=== PATIENT | male | born 1950 | race African-American/Black ===

== ENCOUNTER 2021-10-31 09:05 | Outpatient (REF) | payer MEDICARE, SELFPAY ==
[2021-10-31 10:16] LABS: Hematocrit 33.5 % (42.0-52.0); Mean Corpuscular HGB Conc 32.8 g/dl (31.0-36.0); Mean Corpuscular Hemoglobin 28.3 pg (27.0-33.0); Mean Corpuscular Volume 86.1 fL (80.0-98.0); Platelet Count 267 X10*3/uL (160-400); Red Blood Count 3.89 X10*6/uL (4.60-5.80); Red Cell Distribution Width 14.9 % (11.0-16.0); White Blood Count 2.6 X10*3/uL (4.8-10.8)
[2021-10-31 10:52] LABS: Appearance Urine HAZY; Color Urine YELLOW; Glucose Urine UA NEG (NEG); Leukocyte Esterase Urine 2+ (NEG); Nitrite Urine POS (NEG); Specific Gravity - Urine 1.025 (1.005-1.025); Urine Blood NEG (NEG); Urine Ketones NEG (NEG); Urine Protein NEG (NEG-TRACE)
[2021-10-31 12:05] LABS: Bacteria Urine 2+ /LPF; RBC Urine 0-2 /HPF (0); Renal Epithelial Cells Urine 1+ /LPF; Squamous Epithelial Cell Urine 1+ /LPF
[2021-10-31 12:24] LABS: Creatinine Urine 108.14 mg/dL; Microalbum/Creatinine Ratio Ur 13.8 ug/mg cr
[2021-10-31 12:36] LABS: Alanine Aminotransferase 26 U/L (0-40); Alkaline Phosphatase 66 U/L (39-117); Aspartate Amino Transferase 24 U/L (5-37); Bilirubin Direct < 0.2 mg/dL (0.0-0.5); Bilirubin Total 0.4 mg/dL (0.0-1.0); Cholesterol 182 mg/dL; HDL Cholesterol 51 mg/dL; LDL Cholesterol Calculated 121 mg/dl; Total Protein 6.8 g/dL (6.5-8.0); Triglycerides 52 mg/dL
[2021-10-31 13:18] LABS: Thyroid Stimulating Hormone 0.67 uIU/mL (0.32-4.0)
[2021-10-31 15:26] LABS: Estimated Average Glucose 140 mg/dL; Hemoglobin A1c % 6.5 %
[2021-11-05 12:57] LABS: Vitamin D 25-OH, D2 <4 ng/mL; Vitamin D 25-OH, D3 68 ng/mL; Vitamin D 25-OH, Total 68 ng/mL (30-100)
== END 2021-10-31 09:06 | disposition home or self-care (01) ==
LOC: HO.LAB 09:05
PROVIDERS: PCP Internal Medicine; Visit Provider Internal Medicine
DX: Z00.00 Encounter for general adult medical examination without abnormal findings (principal); E11.9 Type 2 diabetes mellitus without complications; E78.00 Pure hypercholesterolemia, unspecified; I10 Essential (primary) hypertension
CPT/HCPCS: 36415; 80061; 80076; 81001; 82043; 82306; 83036; 84443; 85027

== ENCOUNTER 2022-10-20 18:46 | Emergency (ER) | payer OTHER, MEDICARE, SELFPAY ==
[2022-10-20 19:15] VITALS: BP 114/54; PULSE 111; RESP 20; TEMP 37.7; O2SAT 95; BMI 29.1
[2022-10-20] MEDS: Acetaminophen 325 MG TABLET 650 MG PO (19:23)
[2022-10-20 19:41] LABS: Basophils Percent Auto 0.2 % (0-2); Eosinophils Percent Auto 0.3 % (0-4); Hemoglobin 10.4 g/dl (14.0-18.0); Imm Gran Abs Auto 0.01 X10*3/uL (0.00-0.03); Imm Gran Pct Auto 0.2 % (0.0-0.4); Lymphocytes Absolute Auto 0.6 X10*3/uL (1.2-4.9); Lymphocytes Percent Auto 8.9 % (20-40); MANUAL DIFF FLAG NO; Mean Corpuscular HGB Conc 33.5 g/dl (31.0-36.0); Mean Corpuscular Volume 86.4 fL (80.0-98.0); Mean Platelet Volume 9.6 fL (9.4-12.4); Monocytes Absolute Auto 0.4 X10*3/uL (0.1-1.2); Monocytes Percent Auto 5.8 % (2-11); Neutrophils Absolute Auto 5.4 x10*3/uL (2.0-8.3); Neutrophils Percent Auto 84.6 % (45-73); Platelet Count 192 X10*3/uL (160-400); Red Blood Count 3.59 X10*6/uL (4.60-5.80); Red Cell Distribution Width 14.5 % (11.0-16.0); White Blood Count 6.4 X10*3/uL (4.8-10.8)
[2022-10-20 19:42] LABS: Appearance Urine Clear; Color Urine Yellow; Glucose Urine UA >=1000 mg/dL (Negative); Leukocyte Esterase Urine Small (1+) (Negative); Nitrite Urine Positive (Negative); PH 5.5 (5.0-9.0); UMIC TRIGGER UACC YES; Urine Blood Negative (Negative); Urine Ketones Negative (Negative); Urine Protein Trace mg/dL (Neg-Trace)
[2022-10-20 19:46] LABS: Bacteria Urine 1+ (None Seen); Hyaline Casts Urine 0-2 /LPF (0-2); RBC Urine 0-2 /HPF (0-2); UACC Culture Trigger YES; WBC Urine 21-50 /HPF (0-5)
[2022-10-20 19:55] LABS: Anion Gap 12 (12-20); Blood Urea Nitrogen 28 mg/dL (9-16); Calcium 8.7 mg/dL (8.4-10.2); Carbon Dioxide 22 mmol/L (22-29); Chloride 110 mmol/L (96-108); Creatinine Clr Calc Pharmacy 58.9; Estimated Glomerular Filt Rate 50; Glucose Random 131 mg/dL (60-115); Potassium 4.5 mmol/L (3.3-5.1); Sodium 139 mmol/L (135-145)
[2022-10-20 20:00] VITALS: BP 126/67; PULSE 97; RESP 16; TEMP 37.3; O2SAT 98
--- NOTE | 2022-10-20 20:16 | ED_ITS ---
HPI - Male Genitourinary General Chief complaint: Urogenital-Male Stated complaint: UTI? Time Seen by Provider: 10/20/22 20:09 Source: patient Mode of arrival: ambulatory Limitations: no limitations History of Present Illness HPI Narrative: Patient with history of diabetes, hypertension comes here as since the last night having incontinence and frequency feels weak had subjective low-grade fever with chills last night. Patient had bacteremia about 10 years ago Related Data Home Medications Medication Instructions Recorded Confirmed amlodipine 2.5 mg tablet 2.5 mg PO DAILY 10/12/20 10/31/21 lisinopril 40 mg tablet 40 mg PO DAILY 10/12/20 10/31/21 metformin 500 mg tablet 1,000 mg PO BID 10/12/20 10/31/21 [id number] 200 mcg-lycop 50 tab PO DAILY 10/12/20 10/31/21 175 mcg-lutei 250 mcg-herb 178 tablet ([facility] Multivitamin For Men) latanoprost 0.005 % eye drops 1 drp ophthalmic (eye) QPM 10/31/21 10/31/21 pravastatin 80 mg tablet 80 mg PO DAILY 10/31/21 10/31/21 Previous Rx's Medication Instructions Recorded alogliptin 12.5 mg tablet 12.5 mg PO DAILY 3 months #90 tabs 10/12/20 cefuroxime axetil 250 mg tablet 250 mg PO BID 10 days #20 tabs 10/21/22 Allergies Allergy/AdvReac Type Severity Reaction Status Date / Time atorvastatin Allergy Unknown unknown Verified 10/31/21 08:33 rosuvastatin [Crestor] Allergy Unknown Unknown Verified 10/31/21 08:33 simvastatin Allergy Unknown Unknown Verified 10/31/21 08:33 Sulfa (Sulfonamide Allergy Unknown Unknown Verified 10/31/21 08:33 Antibiotics) Influenza Virus Vaccines Allergy Unknown Verified 10/20/22 19:20 Review of Systems Review of Systems: Yes all other systems are reviewed and are negative PMFSH Past Medical History Medical History Annual physical exam Borderline hypercholesterolemia Diabetes mellitus Essential hypertension Surgical History History of carpal tunnel surgery Family History Family History Mother Diabetes High blood pressure Father No problems noted. Father Cancer Social History Social History Housing: House Alcohol intake: never Patient Tobacco Use Status: Never used Tobacco Smoked in Last 30 Days: No e-Cigarette/Vaping Use: Never Used Second Hand Smoke Exposure: No Use of substances other than those prescribed or required for medical reasons: No Advance Directives: No Advance Directives Information Provided: Yes Current occupational status: employed and retired Cognitive needs: No Hearing needs: No Vision needs: No Physical Exam Vital Signs: Vital Signs: Last Vital Signs Temp 99.1 F 10/20/22 20:33 Pulse 91 10/20/22 20:33 Resp 20 10/20/22 19:15 BP 115/55 L 10/20/22 20:33 Pulse Ox 95 10/20/22 19:15 O2 Del Method 10/20/22 19:15 BMI result Body Mass Index 29.1 Appearance: Alert. Oriented X3. No acute distress. Eyes: PERRLA, No Nystagmus ENT: Pharynx normal. Oral Mucosa moist Neck: Normal inspection. Neck supple. CVS: Normal heart rate and rhythm. Pulses normal. Respiratory: No respiratory distress. Equal air entry bilateral, no wheezing/rales/rhonchi Abdomen: Soft and nontender. Bowel sounds are present, no mass palpable, no CVA tenderness rectal: Slightly enlarged prostate nontender Skin: Skin warm and dry. Normal skin color. Normal skin turgor. Extremities: No lower extremity edema. No calf tenderness Neuro: Oriented X 3. No motor deficit. No sensory deficit.No cerebellar signs , cranial nerves II-XII intact Medications Administered Discontinued Medications Generic Name Dose Route Start Last Admin Trade Name Freq PRN Reason Stop Dose Admin Acetaminophen 650 mg 10/20/22 19:20 10/20/22 19:23 Acetaminophen 325 Mg Tablet PO 10/20/22 19:21 650 mg ONCE ONE Administration Sodium Chloride 1,000 mls @ 999 mls/hr 10/20/22 20:17 10/20/22 21:56 Ns IV 10/20/22 21:17 Infused .Q1H1M ONE Infusion Ceftriaxone Sodium 1 gm/ 50 mls @ 100 mls/hr 10/20/22 20:17 10/20/22 21:56 Sodium Chloride IV 10/20/22 20:46 Infused ONCE ONE Infusion Medical Decision Making Differential Diagnosis Patient with uncomplicated UTI received IV Rocephin lactic acid normal discharge patient home on Ceftin for 10 days advised to follow with PCP Lab Data [facility] Lab Attestation statement: I reviewed the patient's lab results. 10/20/22 19:32 10/20/22 19:32 Labs: Lab Results 10/20/22 10/20/22 10/20/22 Range/Units 19:32 19:32 19:32 WBC 6.4 (4.8-10.8) X10*3/uL RBC 3.59 L (4.60-5.80) X10*6/uL Hgb 10.4 L (14.0-18.0) g/dl Hct 31.0 L (42.0-52.0) % MCV 86.4 (80.0-98.0) fL MCH 29.0 (27.0-33.0) pg MCHC 33.5 (31.0-36.0) g/dl RDW 14.5 (11.0-16.0) % Plt Count 192 D (160-400) X10*3/uL MPV 9.6 (9.4-12.4) fL Immature Gran % (Auto) 0.2 (0.0-0.4) % Neut % (Auto) 84.6 H (45-73) % Lymph % (Auto) 8.9 L (20-40) % [place] % (Auto) 5.8 (2-11) % Eos % (Auto) 0.3 (0-4) % Baso % (Auto) 0.2 (0-2) % Lymph # (Auto) 0.6 L (1.2-4.9) X10*3/uL [place] # (Auto) 0.4 (0.1-1.2) X10*3/uL Eos # (Auto) 0.0 (0.0-0.4) X10*3/uL Baso # (Auto) 0.0 (0.0-0.2) X10*3/uL Abs Immat Gran (auto) 0.01 (0.00-0.03) X10*3/uL Absolute Neuts (auto) 5.4 (2.0-8.3) x10*3/uL Absolute Nucleated RBC 0.000 (0.0-0.012) X10*3/uL Nucleated RBC % (auto) 0.0 (0.0-0.2) /100WBC Sodium 139 (135-145) mmol/L Potassium 4.5 (3.3-5.1) mmol/L Chloride 110 H (96-108) mmol/L Carbon Dioxide 22 (22-29) mmol/L Anion Gap 12 (12-20) BUN 28 H (9-16) mg/dL Creatinine 1.39 (0.5-1.4) mg/dL Estim Creat Clear Calc 58.9 Estimated GFR 50 Random Glucose 131 H (60-115) mg/dL Lactic Acid (0.5-2.0) mmol/L Calcium 8.7 (8.4-10.2) mg/dL Urine Color Yellow Urine Appearance Clear Urine pH 5.5 (5.0-9.0) Ur Specific [place] 1.020 (1.005-1.025) Urine Protein Trace (Neg-Trace) mg/dL Urine Glucose (UA) >=1000 H (Negative) mg/dL Urine Ketones Negative (Negative) mg/dL Urine Blood Negative (Negative) Urine Nitrite Positive H (Negative) Ur Leukocyte Esterase Small (1+) H (Negative) Urine RBC 0-2 (0-2) /HPF Urine WBC 21-50 H (0-5) /HPF Ur Squamous Epith Cells 3-5 (0-2) /HPF Urine Bacteria 1+ (None Seen) Hyaline Casts 0-2 (0-2) /LPF 10/20/22 Range/Units 21:14 WBC (4.8-10.8) X10*3/uL RBC (4.60-5.80) X10*6/uL Hgb (14.0-18.0) g/dl Hct (42.0-52.0) % MCV (80.0-98.0) fL MCH (27.0-33.0) pg MCHC (31.0-36.0) g/dl RDW (11.0-16.0) % Plt Count (160-400) X10*3/uL MPV (9.4-12.4) fL Immature Gran % (Auto) (0.0-0.4) % Neut % (Auto) (45-73) % Lymph % (Auto) (20-40) % [place] % (Auto) (2-11) % Eos % (Auto) (0-4) % Baso % (Auto) (0-2) % Lymph # (Auto) (1.2-4.9) X10*3/uL [place] # (Auto) (0.1-1.2) X10*3/uL Eos # (Auto) (0.0-0.4) X10*3/uL Baso # (Auto) (0.0-0.2) X10*3/uL Abs Immat Gran (auto) (0.00-0.03) X10*3/uL Absolute Neuts (auto) (2.0-8.3) x10*3/uL Absolute Nucleated RBC (0.0-0.012) X10*3/uL Nucleated RBC % (auto) (0.0-0.2) /100WBC Sodium (135-145) mmol/L Potassium (3.3-5.1) mmol/L Chloride (96-108) mmol/L Carbon Dioxide (22-29) mmol/L Anion Gap (12-20) BUN (9-16) mg/dL Creatinine (0.5-1.4) mg/dL Estim Creat Clear Calc Estimated GFR Random Glucose (60-115) mg/dL Lactic Acid 0.5 (0.5-2.0) mmol/L Calcium (8.4-10.2) mg/dL Urine Color Urine Appearance Urine pH (5.0-9.0) Ur Specific [place] (1.005-1.025) Urine Protein (Neg-Trace) mg/dL Urine Glucose (UA) (Negative) mg/dL Urine Ketones (Negative) mg/dL Urine Blood (Negative) Urine Nitrite (Negative) Ur Leukocyte Esterase (Negative) Urine RBC (0-2) /HPF Urine WBC (0-5) /HPF Ur Squamous Epith Cells (0-2) /HPF Urine Bacteria (None Seen) Hyaline Casts (0-2) /LPF Discharge Plan Discharge Clinical Impression: Urinary tract infection Patient Disposition: Home, Self-Care Instructions: Urinary Tract Infection in Men (ED) Additional Instructions: Drink plenty of fluids Take antibiotics as prescribed for 10 days Report to the ER if not better Prescriptions: New cefuroxime axetil 250 mg tablet 250 mg PO BID 10 Days Qty: 20 0RF No Action metformin 500 mg tablet 1,000 mg PO BID lisinopril 40 mg tablet 40 mg PO DAILY amlodipine 2.5 mg tablet 2.5 mg PO DAILY [facility] Multivitamin For Men 200-175-250 mcg tablet 50 tab PO DAILY alogliptin 12.5 mg tablet 12.5 mg PO DAILY 90 Days Qty: 90 0RF pravastatin 80 mg tablet 80 mg PO DAILY latanoprost 0.005 % drops 1 drp ophthalmic (eye) QPM
[2022-10-20 20:33] VITALS: BP 115/55; PULSE 91; TEMP 37.3
[2022-10-20] MEDS: 0.9 % Sodium Chloride 1,000 ML 999 ML IV (20:36)
[2022-10-20] MEDS: cefTRIAXone sodium 1 GM in 0.9 % Sodium Chloride 50 ML IV (20:36)
[2022-10-20 21:32] LABS: Lactic Acid 0.5 mmol/L (0.5-2.0)
--- NOTE | 2022-10-20 22:43 | PC.NURSE ---
pt resting quietly while watching tv, at bedside; no apparent distress
--- NOTE | 2022-10-21 00:15 | PC.NURSE ---
discharge instructions given and explained, ambulates safely/independently, no apparent distress, no post ictal sxs, all of patient's questions answered
== END 2022-10-21 00:24 | disposition home or self-care (01) ==
PROVIDERS: Nurse Practitioner Family; Emergency Provider Internal Medicine; PCP Internal Medicine
DX: N39.0 Urinary tract infection, site not specified (principal); I10 Essential (primary) hypertension; Z79.899 Other long term (current) drug therapy
CPT/HCPCS: 36415; 80048; 81001; 83605; 85025; 87040; 87086; 87088; 87186; 96360; 99284; 99285; J0696

== ENCOUNTER 2022-12-30 14:16 | Emergency (ER) | payer OTHER, MEDICARE, SELFPAY ==
[2022-12-30 14:57] VITALS: BP 143/67; PULSE 85; RESP 16; TEMP 36.7; O2SAT 98; BMI 28.2
--- NOTE | 2022-12-30 15:01 | ED.MALEGU ---
HPI - Male Genitourinary General Chief complaint: Urogenital-Male <ESE Farfan - Last Filed: 12/30/22 20:43> Stated complaint: UTI <ESE Farfan - Last Filed: 12/30/22 20:43> Time Seen by Provider: 12/30/22 17:30 <ESE Farfan - Last Filed: 12/30/22 20:43> Source: patient, RN notes reviewed and old records reviewed <Jas Mitchell - Last Filed: 12/30/22 17:44> Mode of arrival: ambulatory <Jas Mitchell - Last Filed: 12/30/22 17:44> Limitations: no limitations <Jas Mitchell - Last Filed: 12/30/22 17:44> History of Present Illness HPI Narrative: 72-year-old male presents for evaluation aeration and urinary urgency. Patient reports that his symptoms started 3 days ago and he also has associated generalized weakness He reports his symptoms feel similar to when he had a UTI about 2 months ago Of note, the patient did have a prostate biopsy 2 weeks ago and he is currently being worked up for prostate cancer Denies any testicular pain or swelling, or abdominal pain. No fevers or chills <Jas Mitchell - Last Filed: 12/30/22 17:44> Related Data Home medications: Home Medications Medication Instructions Recorded Confirmed amlodipine 2.5 mg tablet 2.5 mg PO DAILY 10/12/20 10/31/21 lisinopril 40 mg tablet 40 mg PO DAILY 10/12/20 10/31/21 metformin 500 mg tablet 1,000 mg PO BID 10/12/20 10/31/21 [id number] 200 mcg-lycop 50 tab PO DAILY 10/12/20 10/31/21 175 mcg-lutei 250 mcg-herb 178 tablet ([facility] Mult[facility]itamin For Men) latanoprost 0.005 % eye drops 1 drp ophthalmic (eye) QPM 10/31/21 10/31/21 pravastatin 80 mg tablet 80 mg PO DAILY 10/31/21 10/31/21 Previous Rx's Medication Instructions Recorded alogliptin 12.5 mg tablet 12.5 mg PO DAILY 3 months #90 tabs 10/12/20 cefuroxime axetil 250 mg tablet 250 mg PO BID 10 days #20 tabs 10/21/22 nitrofurantoin 100 mg PO Q12H 7 days #14 caps 12/30/22 monohydrate/macrocrystals 100 mg capsule (Macrobid) <ESE Farfan - Last Filed: 12/30/22 20:43> Allergies/Adverse reactions: Allergies Allergy/AdvReac Type Severity Reaction Status Date / Time atorvastatin Allergy Unknown unknown Verified 10/31/21 08:33 rosuvastatin [Crestor] Allergy Unknown Unknown Verified 10/31/21 08:33 simvastatin Allergy Unknown Unknown Verified 10/31/21 08:33 Sulfa (Sulfonamide Allergy Unknown Unknown Verified 10/31/21 08:33 Antibiotics) Influenza Virus Vaccines Allergy Unknown Verified 10/20/22 19:20 <ESE Farfan - Last Filed: 12/30/22 20:43> Review of Systems Constitutional: Constitutional: Reports as per HPI, Denies chills, Denies fatigue, Denies fever(s) and Denies headache(s) <Jas Mitchell - Last Filed: 12/30/22 17:44> ENT: Denies headache(s) <Jas Mitchell - Last Filed: 12/30/22 17:44> Cardiovascular: Cardiovascular: Denies chest pain and Denies dyspnea <Jas Mitchell - Last Filed: 12/30/22 17:44> Respiratory: Respiratory: Denies cough and Denies dyspnea <Jas Mitchell - Last Filed: 12/30/22 17:44> Gastrointestinal: Gastrointestinal: Denies abdominal pain, Denies constipation and Denies vomiting <Jas Mitchell - Last Filed: 12/30/22 17:44> Genitourinary: Genitourinary: Reports urinary frequency and Reports urinary urgency <Jas Mitchell - Last Filed: 12/30/22 17:44> Neurologic: Denies headache(s) and Denies focal weakness <Jas Mitchell - Last Filed: 12/30/22 17:44> Endocrine: Endocrine: Denies fatigue <Jas Mitchell - Last Filed: 12/30/22 17:44> PMFSH Past Medical History Medical History: Medical History Annual physical exam Borderline hypercholesterolemia Diabetes mellitus Essential hypertension <ESE Farfan - Last Filed: 12/30/22 20:43> Surgical History: Surgical History History of carpal tunnel surgery <ESE Farfan - Last Filed: 12/30/22 20:43> Family History Family History: Family History Mother Diabetes High blood pressure Father No problems noted. Father Cancer <ESE Farfan - Last Filed: 12/30/22 20:43> Social History Social History: Social History Housing: House Alcohol intake: never Patient Tobacco Use Status: Never used Tobacco e-Cigarette/Vaping Use: Never Used Second Hand Smoke Exposure: No Advance Directives: No Advance Directives Information Provided: No Current occupational status: employed and retired Cognitive needs: No Hearing needs: No Vision needs: No <ESE Farfan - Last Filed: 12/30/22 20:43> Physical Exam Vital Signs: Vital Signs: Last Vital Signs Temp 98.0 F 12/30/22 14:57 Pulse 85 12/30/22 14:57 Resp 16 12/30/22 14:57 BP 143/67 H 12/30/22 14:57 Pulse Ox 98 12/30/22 14:57 O2 Del Method Room Air 12/30/22 14:57 BMI result Body Mass Index 28.2 <ESE Farfan - Last Filed: 12/30/22 20:43> Vital Signs: Last Vital Signs Temp 98.0 F 12/30/22 14:57 Pulse 85 12/30/22 14:57 Resp 16 12/30/22 14:57 BP 143/67 H 12/30/22 14:57 Pulse Ox 98 12/30/22 14:57 O2 Del Method Room Air 12/30/22 14:57 BMI result Body Mass Index 28.2 <Jas Mitchell - Last Filed: 12/30/22 17:44> Const: General: healthy appearing, comfortable, no acute distress, alert and awake <Jas Mitchell - Last Filed: 12/30/22 17:44> Nutritional Appearance: well nourished < Last Filed: 12/30/22 17:44> Orientation/consciousness: patient oriented x3 < Last Filed: 12/30/22 17:44> HEENT: Head: Yes normocephalic and Yes atraumatic < Last Filed: 12/30/22 17:44> Throat: Yes posterior oropharynx normal < Last Filed: 12/30/22 17:44> Eyes: Eyelids: Yes eyelids normal < Last Filed: 12/30/22 17:44> Conjunctivae: conjunctivae normal < Last Filed: 12/30/22 17:44> Sclerae: sclerae normal < Last Filed: 12/30/22 17:44> Corneas: corneas normal < Last Filed: 12/30/22 17:44> Pupils: Equal, round and reactive pupils present < Last Filed: 12/30/22 17:44> EOM: EOMs intact bilaterally < Last Filed: 12/30/22 17:44> Neck: Neck: Yes full ROM < Last Filed: 12/30/22 17:44> Cardio: Rate: regular rate < Last Filed: 12/30/22 17:44> Rhythm: regular rhythm < Last Filed: 12/30/22 17:44> GI: Inspection: No distended < Last Filed: 12/30/22 17:44> Palpation (GI): Soft to palpation, not firm, nontender, no guarding and not rigid < Last Filed: 12/30/22 17:44> Auscultation: normoactive bowel sounds < Last Filed: 12/30/22 17:44> Skin: General skin exam: no rashes or lesions noted and elasticity normal <Jas Mitchell - Last Filed: 12/30/22 17:44> Neuro: General: patient oriented x3 <Jas Mitchell - Last Filed: 12/30/22 17:44> Cranial nerves: Yes Equal, round and reactive pupils present and Yes Bilaterally intact EOM present <Jas Mitchell - Last Filed: 12/30/22 17:44> Cognition (Neuro): normal cognition <Jas Mitchell - Last Filed: 12/30/22 17:44> Course Course Course Narrative: RME: 72 yold female presents to the ED for increase urinary frequency. patient denies any abdominal pain, nuasea, vomitting, hematuria, flank pain <ESE Farfan - Last Filed: 12/30/22 20:43> Medical Decision Making Medical Decision Making [facility] Narrative: Clinically the patient has a UTI with white cells and leukocyte esterase in the urine. Labs are without significant findings. We will treat with Macrobid BID x 7 days <Jas Mitchell - Last Filed: 12/30/22 17:44> Differential Diagnosis UTI Cystitis Hyperglycemia Prostate cancer <Jas Mitchell - Last Filed: 12/30/22 17:44> Lab Data Result Diagrams: 12/30/22 15:21 12/30/22 15:21 <ESE Farfan - Last Filed: 12/30/22 20:43> Labs: Lab Results 12/30/22 12/30/22 12/30/22 Range/Units 15:21 15:21 15:25 WBC 7.8 (4.8-10.8) X10*3/uL RBC 3.51 L (4.60-5.80) X10*6/uL Hgb 10.3 L (14.0-18.0) g/dl Hct 30.5 L (42.0-52.0) % MCV 86.9 (80.0-98.0) fL MCH 29.3 (27.0-33.0) pg MCHC 33.8 (31.0-36.0) g/dl RDW 14.6 (11.0-16.0) % Plt Count 174 (160-400) X10*3/uL MPV 10.4 (9.4-12.4) fL Immature Gran % (Auto) 0.3 (0.0-0.4) % Neut % (Auto) 74.8 H (45-73) % Lymph % (Auto) 11.4 L (20-40) % [place] % (Auto) 7.7 (2-11) % Eos % (Auto) 5.5 H (0-4) % Baso % (Auto) 0.3 (0-2) % Lymph # (Auto) 0.9 L (1.2-4.9) X10*3/uL [place] # (Auto) 0.6 (0.1-1.2) X10*3/uL Eos # (Auto) 0.4 (0.0-0.4) X10*3/uL Baso # (Auto) 0.0 (0.0-0.2) X10*3/uL Abs Immat Gran (auto) 0.02 (0.00-0.03) X10*3/uL Absolute Neuts (auto) 5.9 (2.0-8.3) x10*3/uL Absolute Nucleated RBC 0.000 (0.0-0.012) X10*3/uL Nucleated RBC % (auto) 0.0 (0.0-0.2) /100WBC Sodium 144 (135-145) mmol/L Potassium 4.0 (3.3-5.1) mmol/L Chloride 113 H (96-108) mmol/L Carbon Dioxide 25 (22-29) mmol/L Anion Gap 10 L (12-20) BUN 19 H (9-16) mg/dL Creatinine 1.19 (0.5-1.4) mg/dL Estim Creat Clear Calc 66.9 Estimated GFR > 60 Random Glucose 139 H (60-115) mg/dL Calcium 9.1 (8.4-10.2) mg/dL Total Bilirubin 0.3 (0.0-1.0) mg/dL AST 17 (5-37) U/L ALT 18 (0-40) U/L Alkaline Phosphatase 65 (39-117) U/L Total Protein 5.6 L (6.5-8.0) g/dL Albumin 3.4 L (3.5-5.0) g/dL Urine Color Yellow Urine Appearance Clear Urine pH 5.5 (5.0-9.0) Ur Specific [place] 1.025 (1.005-1.025) Urine Protein Negative (Neg-Trace) mg/dL Urine Glucose (UA) >=1000 H (Negative) mg/dL Urine Ketones Negative (Negative) mg/dL Urine Blood Negative (Negative) Urine Nitrite Negative (Negative) Ur Leukocyte Esterase Small (1+) H (Negative) Urine RBC 0-2 (0-2) /HPF Urine WBC 11-20 H (0-5) /HPF Ur Squamous Epith Cells 0-2 (0-2) /HPF Urine Bacteria None Seen (None Seen) Hyaline Casts 3-5 (0-2) /LPF <ESE Farfan - Last Filed: 12/30/22 20:43> Lab Results 12/30/22 12/30/22 12/30/22 Range/Units 15:21 15:21 15:25 WBC 7.8 (4.8-10.8) X10*3/uL RBC 3.51 L (4.60-5.80) X10*6/uL Hgb 10.3 L (14.0-18.0) g/dl Hct 30.5 L (42.0-52.0) % MCV 86.9 (80.0-98.0) fL MCH 29.3 (27.0-33.0) pg MCHC 33.8 (31.0-36.0) g/dl RDW 14.6 (11.0-16.0) % Plt Count 174 (160-400) X10*3/uL MPV 10.4 (9.4-12.4) fL Immature Gran % (Auto) 0.3 (0.0-0.4) % Neut % (Auto) 74.8 H (45-73) % Lymph % (Auto) 11.4 L (20-40) % [place] % (Auto) 7.7 (2-11) % Eos % (Auto) 5.5 H (0-4) % Baso % (Auto) 0.3 (0-2) % Lymph # (Auto) 0.9 L (1.2-4.9) X10*3/uL [place] # (Auto) 0.6 (0.1-1.2) X10*3/uL Eos # (Auto) 0.4 (0.0-0.4) X10*3/uL Baso # (Auto) 0.0 (0.0-0.2) X10*3/uL Abs Immat Gran (auto) 0.02 (0.00-0.03) X10*3/uL Absolute Neuts (auto) 5.9 (2.0-8.3) x10*3/uL Absolute Nucleated RBC 0.000 (0.0-0.012) X10*3/uL Nucleated RBC % (auto) 0.0 (0.0-0.2) /100WBC Sodium 144 (135-145) mmol/L Potassium 4.0 (3.3-5.1) mmol/L Chloride 113 H (96-108) mmol/L Carbon Dioxide 25 (22-29) mmol/L Anion Gap 10 L (12-20) BUN 19 H (9-16) mg/dL Creatinine 1.19 (0.5-1.4) mg/dL Estim Creat Clear Calc 66.9 Estimated GFR > 60 Random Glucose 139 H (60-115) mg/dL Calcium 9.1 (8.4-10.2) mg/dL Total Bilirubin 0.3 (0.0-1.0) mg/dL AST 17 (5-37) U/L ALT 18 (0-40) U/L Alkaline Phosphatase 65 (39-117) U/L Total Protein 5.6 L (6.5-8.0) g/dL Albumin 3.4 L (3.5-5.0) g/dL Urine Color Yellow Urine Appearance Clear Urine pH 5.5 (5.0-9.0) Ur Specific [place] 1.025 (1.005-1.025) Urine Protein Negative (Neg-Trace) mg/dL Urine Glucose (UA) >=1000 H (Negative) mg/dL Urine Ketones Negative (Negative) mg/dL Urine Blood Negative (Negative) Urine Nitrite Negative (Negative) Ur Leukocyte Esterase Small (1+) H (Negative) Urine RBC 0-2 (0-2) /HPF Urine WBC 11-20 H (0-5) /HPF Ur Squamous Epith Cells 0-2 (0-2) /HPF Urine Bacteria None Seen (None Seen) Hyaline Casts 3-5 (0-2) /LPF <Jas O'Osceola - Last Filed: 12/30/22 17:44> Discharge Plan Discharge Clinical Impression: Urinary tract infection <ESE Farfan - Last Filed: 12/30/22 20:43> Patient Disposition: Home, Self-Care <ESE Farfan - Last Filed: 12/30/22 20:43> Instructions: Urinary Tract Infection in Men (ED) <ESE Farfan - Last Filed: 12/30/22 20:43> Additional Instructions: Take the antibiotic twice daily for 10 days and follow up with your urologist <ESE Farfan - Last Filed: 12/30/22 20:43> Prescriptions: New nitrofurantoin monohyd/m-cryst [Macrobid] 100 mg capsule 100 mg PO Q12H 7 Days Qty: 14 0RF Rx Instructions: must administer with a meal/food No Action cefuroxime axetil 250 mg tablet 250 mg PO BID 10 Days Qty: 20 0RF metformin 500 mg tablet 1,000 mg PO BID lisinopril 40 mg tablet 40 mg PO DAILY amlodipine 2.5 mg tablet 2.5 mg PO DAILY Christian Multivitamin For Men 200-175-250 mcg tablet 50 tab PO DAILY alogliptin 12.5 mg tablet 12.5 mg PO DAILY 90 Days Qty: 90 0RF pravastatin 80 mg tablet 80 mg PO DAILY latanoprost 0.005 % drops 1 drp ophthalmic (eye) QPM <ESE Farfan - Last Filed: 12/30/22 20:43> Interventions: LWBS Worksheet Last Done: 12/30/22 17:31 ED Discharge Assessment Last Done: 12/30/22 17:53 <ESE Farfan - Last Filed: 12/30/22 20:43> Discharge Date/Time: 12/30/22 18:00 <ESE Farfan - Last Filed: 12/30/22 20:43>
[2022-12-30 15:29] LABS: MANUAL DIFF FLAG NO
[2022-12-30 15:33] LABS: Appearance Urine Clear; Color Urine Yellow; Glucose Urine UA >=1000 mg/dL (Negative); Leukocyte Esterase Urine Small (1+) (Negative); Nitrite Urine Negative (Negative); PH 5.5 (5.0-9.0); Specific Gravity - Urine 1.025 (1.005-1.025); UMIC TRIGGER UACC YES; Urine Blood Negative (Negative); Urine Ketones Negative (Negative); Urine Protein Negative (Neg-Trace)
[2022-12-30 15:36] LABS: Basophils Percent Auto 0.3 % (0-2); Eosinophils Absolute Auto 0.4 X10*3/uL (0.0-0.4); Eosinophils Percent Auto 5.5 % (0-4); Hematocrit 30.5 % (42.0-52.0); Hemoglobin 10.3 g/dl (14.0-18.0); Imm Gran Abs Auto 0.02 X10*3/uL (0.00-0.03); Imm Gran Pct Auto 0.3 % (0.0-0.4); Lymphocytes Absolute Auto 0.9 X10*3/uL (1.2-4.9); Lymphocytes Percent Auto 11.4 % (20-40); Mean Corpuscular HGB Conc 33.8 g/dl (31.0-36.0); Mean Corpuscular Hemoglobin 29.3 pg (27.0-33.0); Mean Corpuscular Volume 86.9 fL (80.0-98.0); Mean Platelet Volume 10.4 fL (9.4-12.4); Monocytes Absolute Auto 0.6 X10*3/uL (0.1-1.2); Monocytes Percent Auto 7.7 % (2-11); Neutrophils Absolute Auto 5.9 x10*3/uL (2.0-8.3); Neutrophils Percent Auto 74.8 % (45-73); Platelet Count 174 X10*3/uL (160-400); Red Blood Count 3.51 X10*6/uL (4.60-5.80); Red Cell Distribution Width 14.6 % (11.0-16.0); White Blood Count 7.8 X10*3/uL (4.8-10.8)
[2022-12-30 15:38] LABS: Bacteria Urine None Seen (None Seen); RBC Urine 0-2 /HPF (0-2); Squamous Epithelial Cell Urine 0-2 /HPF (0-2); UACC Culture Trigger YES
[2022-12-30 15:47] LABS: Alanine Aminotransferase 18 U/L (0-40); Albumin Level 3.4 g/dL (3.5-5.0); Alkaline Phosphatase 65 U/L (39-117); Anion Gap 10 (12-20); Aspartate Amino Transferase 17 U/L (5-37); Bilirubin Total 0.3 mg/dL (0.0-1.0); Blood Urea Nitrogen 19 mg/dL (9-16); Calcium 9.1 mg/dL (8.4-10.2); Carbon Dioxide 25 mmol/L (22-29); Chloride 113 mmol/L (96-108); Creatinine Clr Calc Pharmacy 66.9; Estimated Glomerular Filt Rate > 60; Glucose Random 139 mg/dL (60-115); Sodium 144 mmol/L (135-145); Total Protein 5.6 g/dL (6.5-8.0)
--- NOTE | 2022-12-30 18:00 | PC.NURSE ---
not an lwt was documented in error
== END 2022-12-30 18:00 | disposition home or self-care (01) ==
PROVIDERS: Physician Assistant; Emergency Provider Student in an Organized Health Care Education/Training Program; PCP Internal Medicine
DX: N39.0 Urinary tract infection, site not specified (principal); R39.15 Urgency of urination; Z79.899 Other long term (current) drug therapy
CPT/HCPCS: 36415; 80053; 81001; 85025; 87086; 87088; 87186; 99282; 99283

== ENCOUNTER 2025-05-03 12:20 | Emergency (ER) | payer OTHER, SELFPAY ==
[2025-05-03 12:27] VITALS: BP 139/63; PULSE 73; RESP 18; TEMP 36.7; O2SAT 95; BMI 29.6
--- NOTE | 2025-05-03 12:27 | ED.GENADULT ---
HPI - General Adult General Chief complaint: Urogenital-Male Stated complaint: UTI Time Seen by Provider: 05/03/25 13:13 Source: patient, family and old records reviewed Mode of arrival: ambulatory Limitations: no limitations History of Present Illness ED Provider: XIN ALVAREZ narrative: 74 yo male with PMH of prostate cancer s/p radiation and treatments at [facility] has completed his therapy, DM, HTN, HLD history of UTI in the past but this is the first since his treatment finished months ago. He started wtih dysuria/pain/frequency this AM. He feels he has a UTI again. He has no n/v, no fevers, no abdominal pain and no back pain. He has no other complaitns MD complaint: ?UTI Onset (ago): day(s) (this AM) Location: genitals Radiation: non-radiation Severity: mild Quality: burning Pain Consistency: intermittent Relieving factors: none Exacerbating factors: other (urination) Associated symptoms: denies other symptoms Treatments prior to arrival: none Related Data Home Medications ?Medication ?Instructions ?Recorded ?Confirmed amlodipine 2.5 mg tablet 2.5 mg PO DAILY 10/12/20 10/31/21 lisinopril 40 mg tablet 40 mg PO DAILY 10/12/20 10/31/21 metformin 500 mg tablet 1,000 mg PO BID 10/12/20 10/31/21 [id number] 200 mcg-lycop 50 tab PO DAILY 10/12/20 10/31/21 175 mcg-lutei 250 mcg-herb 178 tablet (Christian Multivitamin For Men) latanoprost 0.005 % eye drops 1 drp ophthalmic (eye) QPM 10/31/21 10/31/21 pravastatin 80 mg tablet 80 mg PO DAILY 10/31/21 10/31/21 Previous Rx's ?Medication ?Instructions ?Recorded alogliptin 12.5 mg tablet 12.5 mg PO DAILY 3 months #90 tabs 10/12/20 cefuroxime axetil 250 mg tablet 250 mg PO BID 10 days #20 tabs 10/21/22 nitrofurantoin 100 mg PO Q12H 7 days #14 caps 12/30/22 monohydrate/macrocrystals 100 mg capsule (Macrobid) cefuroxime axetil 250 mg tablet 250 mg PO BID 10 days #20 tabs 05/03/25 Allergies Allergy/AdvReac Type Severity Reaction Status Date / Time atorvastatin Allergy Unknown unknown Verified 05/03/25 12:31 rosuvastatin (Crestor) Allergy Unknown Unknown Verified 05/03/25 12:31 simvastatin Allergy Unknown Unknown Verified 05/03/25 12:31 Sulfa (Sulfonamide Allergy Unknown Unknown Verified 05/03/25 12:31 Antibiotics) Influenza Virus Vaccines Allergy Unknown Verified 05/03/25 12:31 Review of Systems Review of Systems: Constitutional : No Fever, No Chills, No Fatigue Cardiovascular : No Chest Pain, No SOB Respiratory : No Cough, No Sputum Gastrointestinal : No Nausea, No Vomiting, No Diarrhea, No abdominal Pain Genitourinary : pos Dysuria, pos Urinary Frequency, pos Hematuria, Musculoskeletal : No joint pain, No Myalgias, No Joint Swelling Skin : No Skin Lesions, No rash Neuro : No Weakness, No Numbness, No Dizziness, no Headache All other systems reviewed and are negative PMFSH Past Medical History Attestation statement: The following information was validated with the patient. Source: old records reviewed Medical History Borderline hypercholesterolemia Essential hypertension Diabetes mellitus Annual physical exam Surgical History History of carpal tunnel surgery Family History Family History Mother Diabetes High blood pressure Father No problems noted. Father Cancer Social History Social History Housing: House Alcohol intake: never Patient Tobacco Use Status: Never used Tobacco Smoked in Last 30 Days: No e-Cigarette/Vaping Use: Never Used Second Hand Smoke Exposure: No Use of substances other than those prescribed or required for medical reasons: No Advance Directives: No Advance Directives Information Provided: Yes Do you have a plan to hurt others: No Plan Current occupational status: employed and retired Cognitive needs: No Hearing needs: No Vision needs: No Physical Exam ED Vital Signs: Vital Signs - 24 hr 05/03/25 12:27 Temperature 98.0 F Pulse Rate 73 Respiratory Rate 18 Blood Pressure 139/63 Pulse Oximetry 95 Oxygen Delivery Method Room Air BMI result Body Mass Index 29.6 Appearance: Alert. Oriented X3. No acute distress. Eyes: Pupils equal, round and reactive to light. ENT: Pharynx normal. Neck: Normal inspection. Neck supple. CVS: Normal heart rate and rhythm. Pulses normal. Respiratory: No respiratory distress. Breath sounds normal. Abdomen: Soft and nontender. no CVA ttp Skin: Skin warm and dry. Normal skin color. Normal skin turgor. Extremities: No lower extremity edema. Neuro: Oriented X 3. No motor deficit. No sensory deficit. Course Course Course Narrative: Rapid medical examination performed in triage by Judy Mackay PA-C. Patient is a 74 year old assigned male at presenting to the emergency department with a possible UTI. Patient states that he had some blood in his urine as well as increased frequency and pain with urination. Detailed physical exam and review of systems are deferred to the rn bsn. UA ordered. Patient placed back in the waiting room pending room availability and results. Medical Decision Making Medical Decision Making [facility] Narrative: 74 yo male with PMH of prostate cancer s/p therapy and completed tx at [facility] DM, HTN, HLD history of UTI now here with this AM feeling dysuria, hematuria and frequency. He has no vomiting, abdominal pain, retention symptoms, n/v/d, fevers. He feels he has a UTI. Given his history will order UA. Based off symptoms will treat with ceftin. Anticipate DC with precautions home. Has no systemic symptoms Differential Diagnosis Differential Diagnoses: The differential diagnosis associated with the presentation includes UTI/urethritis Admission/Observation Consideration of admission/observation: Escalation of care including admission/observation considered no systemic symptoms not toxic stable for DC Lab Data [facility] Lab Attestation statement: I reviewed the patient's lab results. Labs: Lab Results 05/03/25 Range/Units 12:48 Urine Color Dark Yellow Urine Appearance Clear Urine pH 7.5 (5.0-9.0) Ur Specific [place] 1.020 (1.005-1.025) Urine Protein 100 (2+) H (Neg-Trace) mg/dL Urine Glucose (UA) 500 H (Negative) mg/dL Urine Ketones Negative (Negative) mg/dL Urine Blood Small (1+) H (Negative) Urine Nitrite Negative (Negative) Ur Leukocyte Esterase Moderate (2+) H (Negative) Urine RBC >20 H (0-2) /HPF Urine WBC >50 H (0-5) /HPF Ur Squamous Epith Cells 0-2 (0-2) /HPF Urine Bacteria None Seen (None Seen) Hyaline Casts 0-2 (0-2) /LPF Independent Historian Clinical information obtained from an independent historian. History obtained from or confirmed by: Spouse External Record Review External record reviewed: Outpatient record and Prior outpatient labs Prescription Management I considered prescription management with: Antibiotic Discharge Plan Discharge Clinical Impression: Urinary tract infection Qualifiers: Urinary tract infection type: site unspecified Hematuria presence: with hematuria Qualified Code(s): N39.0 - Urinary tract infection, site not specified Patient Disposition: Home, Self-Care Instructions: Urinary Tract Infection in Men (ED) Additional Instructions: urine culture is pending return for fevers, vomiting, severe pain, confusion or any other concerns Prescriptions: New cefuroxime axetil 250 mg tablet 250 mg PO BID 10 Days Qty: 20 0RF No Action cefuroxime axetil 250 mg tablet 250 mg PO BID 10 Days Qty: 20 0RF nitrofurantoin monohyd/m-cryst [Macrobid] 100 mg capsule 100 mg PO Q12H 7 Days Qty: 14 0RF Rx Instructions: must administer with a meal/food metformin 500 mg tablet 1,000 mg PO BID lisinopril 40 mg tablet 40 mg PO DAILY amlodipine 2.5 mg tablet 2.5 mg PO DAILY Christian Multivitamin For Men 200-175-250 mcg tablet 50 tab PO DAILY alogliptin 12.5 mg tablet 12.5 mg PO DAILY 90 Days Qty: 90 0RF pravastatin 80 mg tablet 80 mg PO DAILY latanoprost 0.005 % drops 1 drp ophthalmic (eye) QPM Print Language: Frisian
[2025-05-03 12:57] LABS: Appearance Urine Clear; Glucose Urine UA 500 mg/dL (Negative); PH 7.5 (5.0-9.0); Specific Gravity - Urine 1.020 (1.005-1.025); UMIC TRIGGER UACC YES
[2025-05-03 13:03] LABS: UACC Culture Trigger YES
--- OUTSIDE RECORDS SUMMARY | 2025-05-03 13:51 | XMS_ITS | Clinical Summary ---
Author Organization [facility] Address [address] [place] [address] Phone Care Team Providers Care Supervisor Pipe Finishing Name Role Phone Celestino Watts MD Primary Care Provider [phone] Allergies Active Allergy Reactions Criticality Noted Date Comments Atorvastatin 02/19/2024 Glipizide 02/19/2024 Haemophilus Influenzae Type B 2023 Rosuvastatin 02/19/2024 Simvastatin 02/19/2024 Medications alogliptin (NESINA) 12.5 mg tablet Take 1 tablet (12.5 mg total) by mouth 1 (one) time each day. Active bicalutamide (CASODEX) 50 mg tablet Take 1 tablet (50 mg total) by mouth 1 (one) time each day Active ezetimibe (ZETIA) 10 mg tablet Take 1 tablet (10 mg total) by mouth 1 (one) time each day. Active latanoprost (XALATAN) 0.005 % ophthalmic solution 1 drop every night at bedtime. Active lisinopril (PRINIVIL,ZESTR IL) 40 mg tablet Take 1 tablet (40 mg total) by mouth 1 (one) time each day. Active metFORMIN (GLUCOPHAGE) 1,000 mg tablet Take 1 tablet (1,000 mg total) by mouth 2 (two) times a day with meals. Active timolol (TIMOPTIC) 0.5 % ophthalmic solution 1 drop 2 (two) times a day. Active IBUPROFEN ORAL Take 2 tablets by mouth as needed. Active leuprolide acetate (LUPRON DEPOT, 3 MONTH, IM) Inject into the muscle every 3 (three) months. Had one 10/01/23, next 01/07/24 Active MULTIVITAMIN ORAL Take 1 tablet by mouth daily. Active docosahexaenoic acid/epa (FISH OIL ORAL) Take by mouth as needed. Active pravastatin sodium (PRAVASTATIN ORAL) Take 1 tablet by mouth daily. Active tamsulosin HCl (TAMSULOSIN ORAL) Take 0.8 mg by mouth every night at bedtime. Active TURMERIC ORAL Take 1 tablet by mouth as needed. Active cholecalciferol , vitamin D3, (VITAMIN D3 ORAL) Take 1 tablet by mouth daily. Active relugolix (ORGOVYX) 120 mgIndications:P rostate cancer ([facility] V24, [facility] V28) Take 1 tablet (120 mg total) by mouth 1 (one) time each day 30 tablet 2 11/05/2024 Active Active Problems Problem Noted Date Diagnosed Date Prostate cancer ([facility] V24, [facility] V28) 02/19 Immunizations Name Administration Dates Next Due Moderna SARS-CoV-2 COVID-19, mRNA, LNP-S, preservative free 02/24/2024,10/22/2023 Social History Tobacco Use Types Packs/Day Years Used Date Smoking Tobacco: Never Assessed Sex and Gender Information Value Date Recorded Sex Assigned at Not on file Legal Sex Male 8:53 PM EST Gender Identity Not on file Sexual Orientation Not on file Obstetrics History Last Filed Vital Signs Vital Sign Reading Time Taken Comments Blood Pressure 133/62 09/29/2024 9:43 AM EST Pulse 65 09/29/2024 9:43 AM EST Temperature 36.8 C (98.2 F) 09/29/2024 9:43 AM EST Respiratory Rate - - Oxygen Saturation 100% 09/29/2024 9:43 AM EST Inhaled Oxygen Concentration - - Weight 99.3 kg (219 lb) 09/29/2024 9:43 AM EST Height 182.9 cm (6') 03/24/2024 9:32 AM EDT Body Mass Index 29.7 03/24/2024 9:32 AM EDT Plan of Treatment Health Maintenance Due Date Last Done Comments Diabetes: Annual Foot Exam 1960 Diabetes: Annual Retina Eye Exam 1960 Hepatitis B Vaccines (3 of 3 - Hep B Twinrix 3-dose series) 02/03/2015 09/05/2014, 03/18/2014 Diabetes: Annual GFR (Glomerular Filtration Rate) 01/30/2023 01/30/2022, 01/30/2022 Abdominal Aortic Aneurysm (AAA) Screen 10/17/2023 Cholesterol Screening (Lipid Panel) 10/17/2023 Colorectal Cancer Screening: Colonoscopy 10/17/2023 Falls Risk Assessment 10/17/2023 Hepatitis C Screening 10/17/2023 Medicare Annual Wellness Visit 10/17/2023 Social Influencers of Health Screening 10/17/2023 Depression Screening 09/22/2024 Diabetes: Annual Urine Albumin-Creatinine Ratio (uACR) 09/29/2024 Diabetes: Blood Sugar Control Test (HGBA1C) 09/29/2024 Hypertension/CHF/CAD Annual BMP Blood Test 09/29/2024 01/30/2022, 01/30/2022 COVID-19 Vaccine (9 - Moderna risk season) 2024 06/29/2024, 02/24/2024, 10/22/2023, Additional history exists Influenza Vaccine (#1) 2025 8, 07/23/2007, 08/26/2006 DTaP,Tdap,and Td Vaccines (3 - Td or Tdap) 02/16/2031 02/16/2021, 07/09/2011 Hepatitis A Vaccines Aged Out 09/05/2014, 03/18/20 14 No longer eligible based on patient's age to complete this topic Pneumococcal Vaccine: 50+ Years Completed 12/15/2017, 03/11/2016, 12/29/2006, Additional history exists Zoster Vaccines Completed 11/16/2019, 06/09/2017, 12/15/2017, Additional history exists RSV Immunization Adult Patients Completed 10/22/2023 HIB Vaccines Aged Out No longer eligi ble based on patient's age to complete this topic HPV Vaccines Aged Out No longer eligi ble based on patient's age to complete this topic IPV Vaccines Aged Out No longer eligi ble based on patient's age to complete this topic MMR Vaccines Aged Out No longer eligi ble based on patient's age to complete this topic Meningococcal ACWY Vaccine Aged Out N o longer eligible based on patient's age to complete this topic Meningococcal B Vaccine Aged Out No l onger eligible based on patient's age to complete this topic RSV Immunization Patients Under 20 months Aged Out No longer eligible based on patient's age to complete this topic Varicella Vaccines Aged Out No longer eligible based on patient's age to complete this topic Procedures Procedure Name Priority Date/Time Associated Diagnosis Comments ANNUAL BMP BLOOD TEST Routine 01/30/2022 from Last 3 Months or Most Recently Relevant to Health Maintenance Results * Annual BMP Blood Test (01/30/2022) Annual BMP Blood Test abstracted Historical Provider MD HEALTH MAINTENANCE Final Result from Last 3 Months or Most Recently Relevant to Health Maintenance Insurance [employer] MEDICARE Care Teams Supervisor Pipe Finishing Relationship Specialty Start Date End Date Celestino Watts MD [address] [place] [address] PCP - General 02/12/24
--- OUTSIDE RECORDS SUMMARY | 2025-05-03 13:51 | XMS_ITS | Patient Health Record ---
Author Organization [facility] Address [address] [place] [address] Care Team Providers Care Head Paper Tester Name Role Phone Tha Heller Jr Reason For Referral No Information Plan Of Treatment No Information
--- OUTSIDE RECORDS SUMMARY | 2025-05-03 13:51 | XMS_ITS | Clinical Summary ---
Author Organization [facility] Address [address] [place] [address] Care Team Providers Care Embroidery Designer Name Role Phone Celestino Watts MD Primary Care Provider [phone] Allergies Active Allergy Reactions Criticality Noted Date Comments Atorvastatin 02/19/2024 Glipizide 02/19/2024 Influenza Virus Vaccine 02/19/2024 Rosuvastatin 02/19/2024 Simvastatin 02/19/2024 Medications Medication Sig Dispensed Refills Start Date End Date Status Alogliptin Benzoate 12.5 MG TABS Take 1 tablet by mouth daily. 0 Active VITAMIN D, CHOLECALCIFEROL, PO Take 1 tablet by mouth daily. 0 Active metFORMIN (GLUCOPHAGE) tablet 1000 mg Take 1 tablet (1,000 mg total) by mouth 2 (two) times a day with meals. 0 Active lisinopril (PRINIVIL,ZESTRIL) tablet 40 mg Take 1 tablet (40 mg total) by mouth daily. 0 Active PRAVASTATIN SODIUM PO Take 1 tablet by mouth daily. 0 Active MULTIPLE VITAMINS-MINERALS PO Take 1 tablet by mouth daily. 0 Active Media-3 Fatty Acids (FISH OIL PO) Take by mouth as needed. 0 Active TURMERIC PO Take 1 tablet by mouth as needed. 0 Active TAMSULOSIN HCL PO Take 0.8 mg by mouth every night at bedtime. 0 Active IBUPROFEN PO Take 2 tablets by mouth as needed. 0 Active Leuprolide Acetate, 3 Month, (LUPRON DEPOT, 3-MONTH, IM) Inject into the muscle every 3 (three) months. Had one 10/01/23, next 01/07/24 0 Active ezetimibe (ZETIA) tablet 10 mg Take 1 tablet (10 mg total) by mouth daily. 0 Active bicalutamide (CASODEX) 50 MG tablet Take 1 tablet (50 mg total) by mouth daily 0 Active timolol (TIMOPTIC) 0.5 % ophthalmic solution 1 drop 2 (two) times a day. 0 Active latanoprost (XALATAN) 0.005 % ophthalmic solution 1 drop every night at bedtime. 0 Active Relugolix 120 MG TABS Take 120 mg by mouth daily. Loading dose: Day 1 take 3 tabs (360 mg) then one tab (120 mg) daily thereafter. 30 tablet 6 02/20/2024 Active Active Problems Problem Noted Date Diagnosed Date Prostate cancer 02/20/2024 Social History Tobacco Use Types Packs/Day Years Used Date Smoking Tobacco: Never Assessed Sex and Gender Information Value Date Recorded Sex Assigned at Not on file Gender Identity Not on file Sexual Orientation Not on file Job Start Date Occupation Industry Not on file Not on file Not on file Last Filed Vital Signs Vital Sign Reading Time Taken Comments Blood Pressure 142/67 03/24/2024 9:32 AM EDT Pulse 75 03/24/2024 9:32 AM EDT Temperature 37 C (98.6 F) 03/24/2024 9:32 AM EDT Respiratory Rate - - Oxygen Saturation 99% 03/24/2024 9:32 AM EDT Inhaled Oxygen Concentration - - Weight 95.7 kg (211 lb) 03/24/2024 9:32 AM EDT Height 182.9 cm (6') 03/24/2024 9:32 AM EDT Body Mass Index 28.62 03/24/2024 9:32 AM EDT Plan of Treatment Health Maintenance Due Date Last Done Comments Hepatitis C Screening 1950 Depression Screening 1962 Preventative Health Evaluation 1968 Colon Cancer Screening (Colonoscopy) 1995 Hepatitis B Vaccines (3 of 3 - Hep B Twinrix 3-dose series) 02/03/2015 09/05/2014, 03/18/2014 Fall Risk Assessment 2015 COVID-19 Vaccine ( season) 2024 02/24/2024, 10/22/2023, 02/04/2022, Additional history exists Influenza Vaccine (#1) 2025 DTap / Tdap / Td (3 - Tdap) 02/16/2031 02/16/2021, 1 Pneumococcal Vaccine Completed 12/15/2017, 03/11/2016, 12/29/2006, Additional history exists Shingrix-Zoster Vaccine Completed 11/16/19, 02/20/2018, 12/15/2017 RSV Adult > 60+ Yrs or Completed 10/22/2023 RSV Ped < 20 months Aged Out No longe r eligible based on patient's age to complete this topic Care Teams Embroidery Designer Relationship Specialty Start Date End Date Celestino Watts MD [address] [facility] [facility] [place] [address] PCP - General Internal Medicine 02/12/24
--- OUTSIDE RECORDS SUMMARY | 2025-05-03 13:51 | XMS_ITS | Encounter Summary ---
Author Organization [facility] Address [address] [place] [id number] Phone Care Team Providers Care Shift Supervisor Film Processing Name Role Phone Celestino Watts MD Unavailable Gasper Araujo MD Unavailable [phone] Med Serrano MD, MPH Unavailable [phone] Noemí Campos MD Primary Care Provider [phone] Encounter Details Date Type Department Care Team (Late st Contact Info) Description 02/13/2023 Ancillary Orders Outside Imaging Med Serrano MD, MPH [address] [place] [address], [address] [address] [email or web address] Social History Tobacco Use Types Packs/Day Years Used Date Smoking Tobacco: Never Smokeless Tobacco: Never Alcohol Use Standard Drinks/Week Comments Never 0 (1 standard drink = 0.6 oz pur e alcohol) Child or Family Care Answer Date Record ed Do you have problems with on e of the following making it difficult for you to work, study, or receive health care? No 02/07/2023 Education Answer Date Recorded Are you interested in more education? Not on cornelio e 01/18/2023 Are you concerned about learning? Not on file 01/18/2023 No 01/18/2023 No 01/18/2023 Food Answer Date Recorded Within the past 6 months we worried whether our food would run out before we got money to buy more. Never True 02/07/2023 Within the past 6 months the food we bought just didn't last and we didn't have enough money to get more. Never True Residential Stability Answer Date Recor ded What is your housing situation today? I have wendy sing 02/07/2023 How many times have you move d in the past 12 months? Zero (I did not move) 02/07/2023 Paying for Meds Answer Date Recorded Do you have trouble paying for medicines? No 02/07/2023 Paying Utility Bills Answer Date Record ed Do you have trouble paying your heating or elect ricity bill? No 02/07/2023 Transportation Answer Date Recorded Has the lack of transportati on kept you from medical appointments or from getting medications? No 02/07/2023 Digital Access Answer Date Recorded No 02/13/2023 No 02/13/2023 Reliable internet access at home? Not on file 02/13/2023 Device with a working camera? Not on file Sex and Gender Information Value Date Recorded Sex Assigned at Male 01/29/2022 3:34 PM EDT Legal Sex Male 12:32 PM EST Gender Identity Male 01/29/2022 3:34 PM EDT Sexual Orientation Asexual 01/29/2022 3: 34 PM EDT documented as of this encounter Plan of Treatment Not on file documented as of this encounter Results * CT Abdomen/Pelvis Outside (No Interpretation) (01/14/2023 12:05 AM EDT) Other Narrative PERCKANDIIO_DFCI - 02/13/2023 8:40 AM EDT This study is for PACS storage only and not for interpretation. Med Serrano MD, MPH IMG OUTSIDE IMAGING W/OUT INTERPRETATION Final Result PERCIPIO_DFCI * NM Bone Outside (No Interpretation) (01/14/2023 12:00 AM EDT) Other Narrative PERCIPIO_BW - 02/13/2023 8:40 AM EDT This study is for PACS storage only and not for interpretation. Med Serrano MD, MPH IMG OUTSIDE IMAGING W/OUT INTERPRETATION Final Result BROOKLYNN_BWH * MRI Pelvis (Soft Tissue) Outside (No Interpretation) (11/07/2022 12:00 AM EST) Other Narrative PERCIPIO_DFCI - 02/13/2023 8:32 AM EDT This study is for PACS storage only and not for interpretation. Med Serrano MD, MPH IMG OUTSIDE IMAGING W/OUT INTERPRETATION Final Result [id number] documented in this encounter Visit Diagnoses Not on filedocumented in this encounter Care Teams Shift Supervisor Film Processing Relationship Specialty Start Date End Date Noemí Campos MD [address] [place] [address] [place] [id number] PCP - General 02/13/23 Celestino Watts MD [address] [place] [address] Internal Medicine 09/05/21 Gasper Araujo MD [address] [place] [address] [email or web address] and Oncology 10/31/21 Med Serrano MD, MPH [address] [place] [address], [address] [place] [address] [email or web address] Radiation Oncology 02/12/23 documented as of this encounter Additional Source Comments The information contained in this document represents components of the legal health record. It is not the complete legal health record.[facility]
[2025-05-03 13:57] VITALS: BP 132/67; PULSE 57; RESP 17; TEMP 36.9; O2SAT 98
[2025-05-03 14:01] VITALS: BP 132/67; PULSE 57; RESP 17; TEMP 36.9; O2SAT 98
== END 2025-05-03 14:02 | disposition home or self-care (01) ==
PROVIDERS: Physician Assistant Medical; Emergency Provider Emergency Medicine; PCP Internal Medicine
DX: N39.0 Urinary tract infection, site not specified (principal); R30.0 Dysuria; E11.9 Type 2 diabetes mellitus without complications; I10 Essential (primary) hypertension; E78.00 Pure hypercholesterolemia, unspecified; Z79.899 Other long term (current) drug therapy; Z79.02 Long term (current) use of antithrombotics/antiplatelets
CPT/HCPCS: 81001; 87086; 99283